=== PATIENT | male | born 1985 | race Caucasian/White ===

== ENCOUNTER 2017-02-26 09:33 | Emergency (ER) | payer SELFPAY ==
[2017-02-26 09:39] VITALS: RESP 18
[2017-02-26] MEDS ORDERED: NS 1,000 ML IV ONE (09:59)
--- NOTE | 2017-02-26 10:05 | EDPHY ---
H & P Stated Complaint: "pins and needles" episodes in L hand, L foot x 4 days, h/a Time Seen by Provider: 02/26/17 09:45 HPI/ROS: CHIEF COMPLAINT: Paresthesias HISTORY OF PRESENT ILLNESS: The patient is a 31-year-old healthy man who comes to the emergency department complaining of paresthesias to his left hand, left leg and left face as well as to his scalp. He states that these symptoms wake him up from sleep early in the morning. He feels like he is being shocked. It radiates up into his head. He denies headache. No weakness or numbness. He states he feels like his head is going to short circuit and that if he does not get out of bed he is going to have a stroke or . He describes it as an impulse and states that he has feels like his brain is going to "close off". The patient is currently asymptomatic. He also states that he uses his left arm daily at work and feels that he has some knots in his left shoulder and wonders if this is contributing. He also states that occasionally he snorts hard and hacks up a lugi that is filled with a bloody scab. He wonders if he has a clot in his chest. REVIEW OF SYSTEMS: Constitutional: denies: chills, fever, recent illness, recent injury EENTM: denies: blurred vision, double vision, nose congestion Respiratory: denies: cough, shortness of breath Cardiac: denies: chest pain, irregular heart rate, lightheadedness, palpitations Gastrointestinal/Abdominal: denies: abdominal pain, diarrhea, nausea, vomiting, blood streaked stools Genitourinary: denies: dysuria, frequency, hematuria, pain Musculoskeletal: denies: joint pain, muscle pain Skin: denies: lesions, rash, jaundice, bruising Neurological: See HPI denies: headache, dizziness, weakness Hematologic/Lymphatic: denies: blood clots, easy bleeding, easy bruising Immunologic/allergic: denies: HIV/AIDS, transplant EXAM: GENERAL: Anxious , well-nourished and in no acute distress. HEAD: Atraumatic, normocephalic. EYES: Pupils equal round and reactive to light, extraocular movements intact, sclera anicteric, conjunctiva are normal. ENT: TMs normal, nares patent, oropharynx clear without exudates. Moist mucous membranes. NECK: Normal range of motion, supple without lymphadenopathy or JVD. LUNGS: Breath sounds clear to auscultation bilaterally and equal. No wheezes rales or rhonchi. HEART: Regular rate and rhythm without murmurs, rubs or gallops. ABDOMEN: Soft, nontender, normoactive bowel sounds. No guarding, no rebound. No masses appreciated. BACK: No CVA tenderness, no spinal tenderness, step-offs or deformities EXTREMITIES: Normal range of motion, no pitting or edema. No clubbing or cyanosis. NEUROLOGICAL: Cranial nerves II through XII grossly intact. Normal speech, normal gait. 5/5 strength, normal movement in all extremities, normal sensation PSYCH: Normal mood, normal affect. SKIN: Warm, dry, normal turgor, no visible rashes or lesions. Source: Patient Exam Limitations: No limitations - Personal History Current Tetanus/Diphtheria Vaccine: Unsure Current Tetanus Diphtheria and Acellular Pertussis (TDAP): Unsure - Medical/Surgical History Hx Asthma: No Hx Chronic Respiratory Disease: No Hx Diabetes: No Hx Cardiac Disease: No Hx Renal Disease: No Hx Cirrhosis: No Hx Alcoholism: No Hx HIV/AIDS: No Hx Splenectomy or Spleen Trauma: No Other PMH: Fractured L ankle 01/27 (no surgery just boot) - Family History Significant Family History: No pertinent family hx - Social History Smoking Status: Never smoked Alcohol Use: Sober Drug Use: None Constitutional: Initial Vital Signs Temperature (C) 37.0 C 02/26/17 09:36 Heart Rate 89 02/26/17 09:36 Respiratory Rate 18 02/26/17 09:36 Blood Pressure 154/100 H 02/26/17 09:36 O2 Sat (%) 98 02/26/17 09:36 O2 Delivery Mode Room Air Allergies/Adverse Reactions: No Known Allergies Allergy (Unverified 02/26/17 09:35) Home Medications: Medication Instructions Recorded LORazepam [Ativan 1 mg (RX)] 1 mg PO Q6-8PRN PRN #10 tab 02/26/17 Medical Decision Making - Diagnostics EKG Interpretation: An EKG obtained and was read and documented in trace view. Please see trace view for full reading and report. Sinus rhythm, no acute ischemic changes or arrhythmias Imaging: Discussed imaging studies w/ on call Radiologist ED Course/Re-evaluation: 12:15 p.m. the patient is doing well. His lab work and MRI reassuring. I suspect this is likely anxiety. I suggested Ativan to take as needed. I also suggested he follow up with his primary doctor for further evaluation. The patient agrees. Differential Diagnosis: Partial list of the Differential diagnosis considered include but were not limited to; anxiety, multiple sclerosis, electrolyte abnormality and although unlikely based on the history and physical exam, I also considered acute coronary disease, tumor, aneurysm. I discussed these differential diagnoses and the plan with the patient as well as the usual and expected course. The patient understands that the diagnosis is provisional and that in medicine we are not always correct and that further workup is often warranted. Usual and customary warnings were given. All of the patient's questions were answered. The patient was instructed to return to the emergency department should the symptoms at all worsen or return, otherwise to followup with the physician as we discussed. - Data Points Laboratory Results: Laboratory Results 02/26/17 10:20 02/26/17 10:20 Medications Given: Discontinued Medications Sodium Chloride (Ns) 1,000 mls @ 0 mls/hr IV EDNOW ONE; Wide Open PRN Reason: Protocol Stop: 02/26/17 10:00 Last Admin: 02/26/17 10:16 Dose: 1,000 mls Lorazepam (Ativan Injection) 1 mg IVP EDNOW ONE Stop: 02/26/17 11:03 Last Admin: 02/26/17 11:14 Dose: 1 mg Departure - Departure Disposition: Home, Routine, Self-Care Clinical Impression: Anxiety about health Condition: Fair Instructions: Anxiety (ED) Referrals: NONE *PRIMARY CARE P,. [Primary Care Provider] - As per Instructions Narinder Rae DO [Medical Doctor] - As per Instructions Prescriptions: LORazepam [Ativan 1 mg (RX)] 1 mg PO Q6-8PRN PRN #10 tab PRN Reason: *Anxiety/Agitation/Insomnia
--- NOTE | 2017-02-26 10:13 | CPEKG ---
Heart Rate: 63 RR Interval: 952 P-R Interval: 208 QRSD Interval: 82 QT Interval: 384 QTC Interval: 394 P Chitina: 42 QRS Chitina: -1 T Wave [place]: 22 EKG Severity - NORMAL ECG - EKG Impression: SINUS RHYTHM Electronically Signed By: Salvador Lea 26-Feb-2017 10:18:28
[2017-02-26 10:30] LABS: % IMMATURE GRANULYOCYTES 0.2 % (0.0-1.1); ABSOLUTE IMMATURE GRANULOCYTES 0.01 10^3/uL (0.00-0.10); ADD DIFF? NO; ADD MORPH? NO; ADD SCAN? NO; ATYPICAL LYMPHOCYTE FLAG 0 (0-99); FRAGMENT RBC FLAG 0 (0-99); HEMATOCRIT 45.3 % (40.0-51.0); HEMOGLOBIN 16.9 g/dL (13.7-17.5); LEFT SHIFT FLG 0 (0-99); LIPEMIA HEMOLYSIS FLAG 90 (0-99); MEAN CELL HEMOGLOBIN 32.4 pg (27.9-34.1); MEAN CELL HEMOGLOBIN CONCENTR. 37.3 g/dL (32.4-36.7); MEAN CELL VOLUME 86.8 fL (81.5-99.8); MEAN PLATELET VOLUME 10.1 fL (8.7-11.7); PLATELET CLUMPS FLAG 0 (0-99); PLATELET COUNT 174 10^3/uL (150-400); RED BLOOD CELL COUNT 5.22 10^6/uL (4.40-6.38); RED CELL DISTRIBUTION WIDTH 12.1 % (11.5-15.2)
[2017-02-26 10:45] LABS: ANION GAP 14 mEq/L (8-16); CALCIUM 9.7 mg/dL (8.5-10.4); CARBON DIOXIDE 22 mEq/l (22-31); CHLORIDE 106 mEq/L (97-110); CREATININE 1.2 mg/dL (0.7-1.3); GLOMERULAR FILTRATION RATE > 60; GLUCOSE 98 mg/dL (70-100); SODIUM 142 mEq/L (134-144)
[2017-02-26] MEDS ORDERED: LORazepam 2 MG/ML INJ IVP ONE (11:02)
[2017-02-26 12:49] VITALS: BP 132/86; PULSE 66; TEMP 98.2; O2SAT 92
== END 2017-02-26 12:50 | disposition home or self-care (01) ==
DX: F41.9 Anxiety disorder, unspecified (principal); E86.9 Volume depletion, unspecified
CPT/HCPCS: 96374; J2060